=== PATIENT | female | born 1970 | race African-American/Black ===

== ENCOUNTER → 2018-08-23 | Outpatient (CLI) | payer OTHER ==
[2015-09-21 11:19] VITALS: BP 123/82
[~2018-08-23] MED LIST: CLIN150C14 PO; GLIM4TAB2 PO; HYDR-2761 PO; METF10007 PO; POTA20TA12 PO
--- NOTE | 2018-08-23 11:16 | RAD ---
DATE: 08/23/2018 EXAM: MAMMO EMILIANO DIAG BILAT HISTORY: Breast pain on the right side. No prior mammogram. Baseline. COMPARISON: None This study was interpreted with the benefit of Computerized Aided Detection (CAD). FINDINGS: Breast Density: SCATTERED The breast parenchyma shows scattered fibroglandular densities. Breast parenchyma level B. The skin and nipple are within normal limits. No suspicious calcifications, spiculated mass or area of architectural distortion. There is a 7 mm well-circumscribed oval-shaped mass in the left superficial breast approximately 4.5 cm from the nipple likely at 8:00 position. IMPRESSION: Left superficial breast mass as described above. Please see ultrasound report from the same day. No right breast abnormal is seen. BI-RADS CATEGORY: 4 SUSPICIOUS ABNORMALITY-BIOPSY SHOULD BE CONSIDERED RECOMMENDED FOLLOW-UP: BIO BIOPSY RECOMMENDED. Ultrasound-guided left superficial breast mass biopsy recommended. PQRS compliance statement: Patient information was entered into a reminder system with a target due date for the next mammogram. Mammography is a sensitive method for finding small breast cancers, but it does not detect them all and is not a substitute for careful clinical examination. A negative mammogram does not negate a clinically suspicious finding and should not result in delay in biopsying a clinically suspicious abnormality. "Our facility is accredited by the [employer] Mammography Program." Voicemail was left with 's nurse's station on 08/23/2018 at 11:10 AM.
--- NOTE | 2018-08-23 11:48 | RAD ---
Indication: Bilateral breast pain. Technique: Limited ultrasound of the bilateral breasts. Comparison: Same day diagnostic mammogram Findings: Right breast: No sonographic abnormality seen in the right breast in the region of pain. Left breast: There is a hypoechoic solid mass in the left breast at 8:00 position approximately 6 cm from the nipple which is taller than wider and has minimal posterior shadowing measuring 0.5 x 0.6 x 0.6 cm. Internal echogenic foci are seen. The margins are relatively well-circumscribed. Impression: Incidental anterior medial left breast lesion as described above. BI-RADS 4: Suspicious finding. Ultrasound-guided biopsy recommended.
== END | disposition home or self-care (01) ==
LOC: MAMMO 09:34
PROVIDERS: ATTEND Obstetrics & Gynecology
DX: N63.24 Unspecified lump in the left breast, lower inner quadrant (principal); N64.4 Mastodynia
CPT/HCPCS: 76641; 77066; G0279; 77062

== ENCOUNTER 2021-09-04 17:24 | Emergency (ER) | payer MEDICARE, OTHER ==
[~2021-09-04] VITALS: Ht 165.1 cm; Wt 191.3 kg
[~2021-09-04 17:24] MED LIST changes: -CLIN150C14 PO; +CLIN150C16 PO; -GLIM4TAB2 PO; +GLIM4TAB8 PO
[2021-09-04 20:40] VITALS: BP 154/80
[2021-09-04] MEDS ORDERED: HYDR-2761 PO (21:07)
--- NOTE | 2021-09-04 21:08 | PHYS DOC ---
Past Medical History Past Medical History: Arthritis, Diabetes-Type II, Hypertension, Seizure, Other Additional Past Medical Histor: morbid obesity, chronic back pain Past Surgical History: Cholecystectomy, Tubal ligation Smoking Status: Current Every Day Smoker Alcohol Use: None Drug Use: None General Adult EDM: Chief Complaint: BACK PAIN OR INJURY HPI: HPI: Patient is a 51-year-old female who presents today with right shoulder/back pain. Patient states the pain started on , she denies any trauma or injury. Patient states that she takes chronic opioid medication for back pain, she states that she is out of her hydrocodone's and she does not have anything else she can take for pain. Patient states she did drive here to the emergency department today, and that [facility], and she has not seen her since July. Review of Systems: Review of Systems: Constitutional: Denies fever or chills. [] Eyes: Denies change in visual acuity. [] HENT: Denies nasal congestion or sore throat. [] Respiratory: Denies cough or shortness of breath. [] Cardiovascular: Denies chest pain or edema. [] GI: Denies abdominal pain, nausea, vomiting, bloody stools or diarrhea. [] : Denies dysuria. [] Musculoskeletal: Right shoulder/BACK pain. [] Integument: Denies rash. [] Neurologic: Denies headache, focal weakness or sensory changes. [] Endocrine: Denies polyuria or polydipsia. [] Lymphatic: Denies swollen glands. [] Psychiatric: Denies depression or anxiety. [] Heart Score: C/O Chest Pain: No Risk Factors: Risk Factors: DM, Current or recent (<one month) smoker, HTN, HLP, family history of CAD, obesity. Risk Scores: Score 0 - 3: 2.5% MACE over next 6 weeks - Discharge Home Score 4 - 6: 20.3% MACE over next 6 weeks - Admit for Clinical Observation Score 7 - 10: 72.7% MACE over next 6 weeks - Early Invasive Strategies Allergies: Allergies: Allergies Coded Allergies Type Severity Reaction Last Updated Verified Penicillins Allergy Intermediate rash 08/06/15 Yes chlorpheniramine Allergy Intermediate rash 08/06/15 Yes hydrocodone Allergy Intermediate rash 08/06/15 Yes Physical Exam: PE: Constitutional: Well developed, well nourished, no acute distress, non-toxic appearance. [] HENT: Normocephalic, atraumatic, bilateral external ears normal, oropharynx moist, no oral exudates, nose normal. [] Eyes: PERRLA, EOMI, conjunctiva normal, no discharge. [] Neck: Normal range of motion, no tenderness, supple, no stridor. [] Cardiovascular:Heart rate regular rhythm, no murmur [] Lungs & Thorax: Bilateral breath sounds clear to auscultation [] Abdomen: Bowel sounds normal, soft, no tenderness, no masses, no pulsatile masses. [] Skin: Warm, dry, no erythema, no rash. [] Back: Right scapular tenderness noted with trigger points noted, no lacerations, abrasions, contusion, or ecchymosis noted Extremities: Right arm adequate range of motion noted, no numbness no tingling distal to the pain, cap refills less than 2 seconds radial pulse is 2+, Neurologic: Alert and oriented X 3, normal motor function, normal sensory function, no focal deficits noted. [] Psychologic: Affect normal, judgement normal, mood normal. [] EKG: EKG: [] Radiology/Procedures: Radiology/Procedures: [] Course & Med Decision Making: Course & Med Decision Making Pertinent Labs and Imaging studies reviewed. (See chart for details) Patient will be given an IM injection of Toradol while here in the emergency department, when I asked patient about her possible allergy to hydrocodone which was listed in her allergy section she states that she currently takes hydrocodone on a regular basis she is not sure but she says that is not an allergy for her. Did inform her that I will give her a couple tablets of hydrocodone but she will need to follow-up with her primary care physician as soon as possible for further management of her back pain. Patient verbalized understanding this and agreeable to the plan of care. Aj Disclaimer: Aj Disclaimer: This electronic medical record was generated, in whole or in part, using a voice recognition dictation system. Departure Departure Impression: Primary Impression: Right-sided thoracic back pain Qualified Codes: M54.6 - Pain in thoracic spine Disposition: HOME / SELF CARE / HOMELESS Condition: STABLE Referrals: ALLYSSA PAZ (PCP) Patient Instructions: Back Pain, Adult Additional Instructions: Hydrocodone take 1 tablet every 6 hours as needed for severe pain, use with caution may cause drowsiness or constipation [id number] Tylenol and/or ibuprofen as needed for pain as well [id number] Lidoderm patches laced 1 on your right scapular area for 12 hours and then remove. Follow-up with your primary care provider tomorrow by phone for further management of your back pain. Return to the emergency department if you have chest pain, shortness of air, or development of a fever. Scripts Hydrocodone Bit/Acetaminophen (HYDROCODONE-APAP 5-325 ) 1 Tab Tablet 1 TAB PO PRN Q6HRS PRN for PAIN, #10 TAB 0 Refills Prov: FANY CASAS APRN 09/04/21 FANY CASAS APRN Sep 04, 2021 21:08
[2021-09-04] MEDS ORDERED: KETOROLAC 60 MG/2 ML VIAL. IM ONE (21:15)
== END 2021-09-04 21:48 | disposition home or self-care (01) ==
LOC: ER 17:24
DX: M54.6 Pain in thoracic spine (principal); M25.511 Pain in right shoulder; E11.9 Type 2 diabetes mellitus without complications; I10 Essential (primary) hypertension; G89.29 Other chronic pain; E66.01 Morbid (severe) obesity due to excess calories; Z68.45 Body mass index [BMI] 70 or greater, adult; F17.200 Nicotine dependence, unspecified, uncomplicated; Z90.49 Acquired absence of other specified parts of digestive tract; Z98.51 Tubal ligation status; Z88.0 Allergy status to penicillin; Z88.8 Allergy status to other drugs, medicaments and biological substances; Z88.5 Allergy status to narcotic agent
CPT/HCPCS: 96372; 99283; J1885